=== PATIENT | male | born 1945 | race Caucasian/White ===

== ENCOUNTER 2021-10-10 08:34 | Observation (INO) ==
[2021-10-10 09:02] LABS: INR 1.1; Prothrombin Time 12.4 Seconds (9.4-12.1)
[2021-10-10] MEDS ORDERED: 0.9 % Sodium Chloride 500 ML ONE (09:13)
[2021-10-10] MEDS ORDERED: *HR* Midazolam HCl 2 MG/2 ML VIAL IVP ONE (09:21)
[2021-10-10] MEDS ORDERED: *HR* FentaNYL (PF) 100 MCG/2 ML VIAL IVP ONE (09:21)
[2021-10-10 09:38] LABS: Basophils # 0.1 K/mcL (0.0-0.2); Basophils % 0.9 %; Eosinophils # 0.3 K/mcL (0.0-0.6); Eosinophils % 3.4 %; Hematocrit 40.1 % (37.5-50.1); Hemoglobin 13.3 g/dL (12.9-16.9); Immature Granulocytes % 1.6 % (0-4); Lymphocytes # 2.3 K/mcL (0.6-4.6); Lymphocytes % 27.8 %; Mean Corpuscular HGB Conc 33.2 g/dL (31.6-35.5); Mean Corpuscular Hemoglobin 30.8 pg (28.0-33.3); Mean Corpuscular Volume 92.8 fL (83.0-100.0); Mean Platelet Volume 9.5 fL (9.4-12.4); Monocytes # 0.7 K/mcL (0.0-1.3); Monocytes % 8.3 %; Neutrophils # 4.8 K/mcL (1.6-8.9); Platelet Count 296 K/mcL (140-400); Red Blood Count 4.32 M/mcL (4.19-5.50); Red Cell Distribution Width 13.7 % (11.5-14.5); White Blood Count 8.2 K/mcL (4.3-11.1)
[2021-10-10] MEDS ORDERED: Naloxone 0.4 MG/ML INJ IVP PRN ×2 (13:15→13:19)
[2021-10-10] MEDS: predniSONE 20 MG TABLET PO SCH (15:25)
[2021-10-10] MEDS: Ipratropium/Albuterol Neb 3 ML IH SCH ×3 (15:52→23:21)
[2021-10-11] MEDS: Ipratropium/Albuterol Neb 3 ML IH SCH ×5 (04:15→20:09)
[2021-10-11 05:43] LABS: Basophils % 0.1 %; Eosinophils % 0.1 %; Hematocrit 32.8 % (37.5-50.1); Immature Granulocytes % 0.9 % (0-4); Lymphocytes # 1.2 K/mcL (0.6-4.6); Lymphocytes % 13.5 %; Mean Corpuscular HGB Conc 34.1 g/dL (31.6-35.5); Mean Corpuscular Hemoglobin 30.6 pg (28.0-33.3); Mean Corpuscular Volume 89.6 fL (83.0-100.0); Mean Platelet Volume 9.4 fL (9.4-12.4); Monocytes # 0.5 K/mcL (0.0-1.3); Monocytes % 5.9 %; Neutrophils # 7.2 K/mcL (1.6-8.9); Platelet Count 245 K/mcL (140-400); Red Blood Count 3.66 M/mcL (4.19-5.50); Red Cell Distribution Width 13.6 % (11.5-14.5); Segmented Neutrophils % 79.5 %; White Blood Count 9.1 K/mcL (4.3-11.1)
[2021-10-11 05:45] LABS: Hemoglobin 11.2 g/dL (12.9-16.9)
[2021-10-11 06:00] LABS: BUN/Creatinine Ratio 15 (6-26); Blood Urea Nitrogen 13 mg/dL (8-23); Calcium 8.5 mg/dL (8.6-10.3); Carbon Dioxide 24 mEq/L (23-29); Chloride 99 mEq/L (98-107); Glucose 141 mg/dL (70-105); Osmolality,Calculated 272 (280-300); Potassium 4.1 mEq/L (3.5-5.1); Sodium 130 mEq/L (136-145); eGFR For African Americans > 60 (> 60); eGFR For Non-African Americans > 60 (> 60)
[2021-10-11] MEDS: predniSONE 20 MG TABLET PO SCH (09:21)
[2021-10-11] MEDS: MOM Conc 10 ML UD.LIQ PO PRN ×2 (17:33→19:10)
[2021-10-11] MEDS: Mag Hydrox/Al Hydrox/Simeth 30 ML UDC PO PRN ×3 (17:33→19:08)
[2021-10-11] MEDS: Ondansetron ODT 4 MG TAB.RAPDIS SL PRN (17:38)
[2021-10-11] MEDS ORDERED: Perphenazine 2 MG TABLET PO SCH (21:00)
[2021-10-12] MEDS: Ipratropium/Albuterol Neb 3 ML IH SCH ×4 (00:33→15:23)
[2021-10-12 04:26] VITALS: TEMP 97.8; O2SAT 94
[2021-10-12] MEDS: Ondansetron ODT 4 MG TAB.RAPDIS SL PRN (05:41)
[2021-10-12] MEDS: Mag Hydrox/Al Hydrox/Simeth 30 ML UDC PO PRN (05:42)
[2021-10-12 07:02] LABS: Basophils % 0.3 %; Eosinophils % 0.3 %; Immature Granulocytes % 1.1 % (0-4); Lymphocytes # 2.8 K/mcL (0.6-4.6); Mean Corpuscular HGB Conc 33.3 g/dL (31.6-35.5); Mean Corpuscular Hemoglobin 30.2 pg (28.0-33.3); Mean Corpuscular Volume 90.5 fL (83.0-100.0); Mean Platelet Volume 9.3 fL (9.4-12.4); Monocytes % 8.5 %; Neutrophils # 7.6 K/mcL (1.6-8.9); Platelet Count 289 K/mcL (140-400); Red Blood Count 3.98 M/mcL (4.19-5.50); Red Cell Distribution Width 13.9 % (11.5-14.5); Segmented Neutrophils % 65.8 %; White Blood Count 11.5 K/mcL (4.3-11.1)
[2021-10-12 07:46] LABS: BUN/Creatinine Ratio 15 (6-26); Blood Urea Nitrogen 13 mg/dL (8-23); Calcium 8.9 mg/dL (8.6-10.3); Carbon Dioxide 26 mEq/L (23-29); Chloride 99 mEq/L (98-107); Glucose 91 mg/dL (70-105); Osmolality,Calculated 272 (280-300); Potassium 4.2 mEq/L (3.5-5.1); Sodium 131 mEq/L (136-145); eGFR For African Americans > 60 (> 60); eGFR For Non-African Americans > 60 (> 60)
[2021-10-12 08:00] VITALS: BP 109/66; PULSE 63
[2021-10-12 08:33] LABS: Thyroid Stimulating Hormone 3.604 mcIU/mL (0.340-5.600)
[2021-10-12] MEDS: predniSONE 20 MG TABLET PO SCH (09:34)
[2021-10-12 10:18] LABS: Magnesium 2.4 mg/dL (1.6-2.6)
== END 2021-10-12 16:15 | disposition home or self-care (01) ==
LOC: 3NENU 08:34 → LAB 08:34 → SUATTDRO 11:34
PROVIDERS: ADMIT Hospitalist; ATTEND Internal Medicine

== ENCOUNTER 2021-11-24 09:25 | Inpatient (IN) ==
[~2021-11-24 09:25] MED LIST: Acetaminophen IV 1,000 MG/100 ML BAG IVPB ONE; Albuterol 2.5 MG/3 ML NEBULIZER IH ONE
[2021-11-24] MEDS ORDERED: Clindamycin 900 MG/50 ML 900 MG/50 ML IV.SOLN IVPB ONE (09:46)
[2021-11-24] MEDS ORDERED: Ringers Solution, Lactated 1,000 ML IVC SCH (10:00)
[2021-11-24] MEDS ORDERED: Ondansetron 4 MG/2 ML VIAL IVP PRN ×2 (10:36→16:11)
[2021-11-24] MEDS ORDERED: *HR* FentaNYL (PF) 100 MCG/2 ML VIAL IVP PRN (10:36)
[2021-11-24] MEDS ORDERED: Albuterol 2.5 MG/3 ML NEBULIZER IH PRN (10:36)
[2021-11-24] MEDS ORDERED: *HR* Rocuronium Bromide 50 MG/5 ML VIAL ONE ×2 (10:37→12:49)
[2021-11-24] MEDS ORDERED: Lidocaine -MPF 2% 2 ML VIAL ONE (10:37)
[2021-11-24] MEDS ORDERED: *HR* Succinylcholine 200 MG/10 ML VIAL IVP ONE (10:37)
[2021-11-24] MEDS ORDERED: Ondansetron 4 MG/2 ML VIAL ONE (10:37)
[2021-11-24] MEDS ORDERED: *HR* FentaNYL (PF) 100 MCG/2 ML VIAL ONE (10:38)
[2021-11-24] MEDS ORDERED: *HR* Propofol 200 MG/20 ML VIAL IVP ONE (10:38)
[2021-11-24] MEDS ORDERED: Ketorolac 30 MG/ML VIAL ONE (13:53)
[2021-11-24] MEDS ORDERED: Naloxone 0.4 MG/ML INJ IVP PRN (16:11)
[2021-11-24] MEDS ORDERED: Gabapentin 300 MG CAPSULE PO SCH (16:11)
[2021-11-24] MEDS: *HR* HYDROcodone/Acet 5/325 mg TABLET PO PRN (16:19)
[2021-11-24] MEDS: 0.9 % Sodium Chloride 1,000 ML IVC SCH (17:14)
[2021-11-24] MEDS: *HR* Heparin 5,000 UNIT/ML VIAL SQ SCH (17:14)
[2021-11-24] MEDS: Ketorolac 30 MG/ML VIAL IVP SCH (18:31)
[2021-11-24] MEDS ORDERED: Amiodarone Premix 360 MG/200 ML BAG IVC ONE (18:58)
[2021-11-24] MEDS ORDERED: Amiodarone Premix 150 MG/100 ML BAG IVPB ONE (18:58)
[2021-11-24] MEDS: Ipratropium/Albuterol Neb 3 ML IH SCH ×3 (20:09→23:52)
[2021-11-24] MEDS: Sennosides/Docusate Sodium TABLET PO SCH (20:20)
[2021-11-24] MEDS: Perphenazine 2 MG TABLET PO SCH (20:21)
[2021-11-24] MEDS: Famotidine 20 MG TABLET PO SCH (20:21)
[2021-11-25] MEDS: Ketorolac 30 MG/ML VIAL IVP SCH ×5 (00:08→23:40)
[2021-11-25] MEDS: *HR* Heparin 5,000 UNIT/ML VIAL SQ SCH ×4 (00:08→21:09)
[2021-11-25] MEDS: Gabapentin 300 MG CAPSULE PO SCH ×4 (00:09→21:09)
[2021-11-25] MEDS ORDERED: Amiodarone Premix 360 MG/200 ML BAG IVC SCH (00:59)
[2021-11-25] MEDS: Ipratropium/Albuterol Neb 3 ML IH SCH ×6 (03:40→23:41)
[2021-11-25 03:50] LABS: Hematocrit 34.9 % (37.5-50.1); Hemoglobin 12.2 g/dL (12.9-16.9); Mean Corpuscular Volume 88.8 fL (83.0-100.0); Mean Platelet Volume 8.7 fL (9.4-12.4); Platelet Count 304 K/mcL (140-400); Red Blood Count 3.93 M/mcL (4.19-5.50); White Blood Count 9.9 K/mcL (4.3-11.1)
[2021-11-25 04:09] LABS: BUN/Creatinine Ratio 22 (6-26); Blood Urea Nitrogen 19 mg/dL (8-23); Calcium 8.7 mg/dL (8.6-10.3); Carbon Dioxide 21 mEq/L (23-29); Chloride 95 mEq/L (98-107); Glucose 176 mg/dL (70-105); Magnesium 1.9 mg/dL (1.6-2.6); Osmolality,Calculated 267 (280-300); Sodium 125 mEq/L (136-145); eGFR For African Americans > 60 (> 60); eGFR For Non-African Americans > 60 (> 60)
[2021-11-25] MEDS: 0.9 % Sodium Chloride 1,000 ML IVC SCH (06:05)
[2021-11-25] MEDS: Sennosides/Docusate Sodium TABLET PO SCH ×2 (07:29→21:09)
[2021-11-25] MEDS: Famotidine 20 MG TABLET PO SCH ×2 (07:29→21:09)
[2021-11-25] MEDS: Tiotropium 10 INH DOSE IH SCH (07:30)
[2021-11-25] MEDS: Aspirin Enteric Coated 81 MG Tablet PO SCH (07:30)
[2021-11-25] MEDS ORDERED: NON-FORMULARY MEDICATION 1 EACH EACH (Alendronate Sodium [Fosamax] 35 MG Tablet) PO SCH (13:56)
[2021-11-25] MEDS: Perphenazine 2 MG TABLET PO SCH (21:09)
[2021-11-26] MEDS: Ipratropium/Albuterol Neb 3 ML IH SCH ×6 (03:43→23:33)
[2021-11-26] MEDS: Ketorolac 30 MG/ML VIAL IVP SCH ×4 (05:41→23:59)
[2021-11-26] MEDS: *HR* Heparin 5,000 UNIT/ML VIAL SQ SCH ×3 (05:41→21:40)
[2021-11-26] MEDS: Aspirin Enteric Coated 81 MG Tablet PO SCH (08:12)
[2021-11-26] MEDS: Sennosides/Docusate Sodium TABLET PO SCH ×2 (08:12→21:43)
[2021-11-26] MEDS: Famotidine 20 MG TABLET PO SCH ×2 (08:12→21:40)
[2021-11-26] MEDS: Gabapentin 300 MG CAPSULE PO SCH ×3 (08:12→21:40)
[2021-11-26] MEDS ORDERED: *HR* Amiodarone 200 MG TABLET PO SCH (09:00)
[2021-11-26] MEDS: Tiotropium 10 INH DOSE IH SCH (11:24)
[2021-11-26] MEDS ORDERED: 0.9 % Sodium Chloride 500 ML IVC ONE (13:09)
[2021-11-26] MEDS ORDERED: 0.9 % Sodium Chloride 1,000 ML ONE (13:10)
[2021-11-26] MEDS ORDERED: Albumin Human 5% 12.5 GM/250 ML IV.SOLN ONE (13:10)
[2021-11-26] MEDS ORDERED: Albumin Human 5% 12.5 GM/250 ML IV.SOLN IVPB ONE (13:11)
[2021-11-26] MEDS ORDERED: 0.9 % Sodium Chloride 500 ML IVC SCH (13:15)
[2021-11-26] MEDS ORDERED: 0.9 % Sodium Chloride 1,000 ML IVC SCH (14:56)
[2021-11-26] MEDS ORDERED: Bisacodyl 10 MG RECTAL SUPPOSITORY RC PRN (14:59)
[2021-11-26 16:54] LABS: Hematocrit 29.3 % (37.5-50.1); Mean Corpuscular HGB Conc 34.8 g/dL (31.6-35.5); Mean Corpuscular Hemoglobin 30.5 pg (28.0-33.3); Mean Corpuscular Volume 87.7 fL (83.0-100.0); Mean Platelet Volume 8.9 fL (9.4-12.4); Platelet Count 291 K/mcL (140-400); Red Blood Count 3.34 M/mcL (4.19-5.50); Red Cell Distribution Width 13.2 % (11.5-14.5); White Blood Count 11.4 K/mcL (4.3-11.1)
[2021-11-26 16:56] LABS: Hemoglobin 10.2 g/dL (12.9-16.9)
[2021-11-26] MEDS: Perphenazine 2 MG TABLET PO SCH (21:40)
[2021-11-26] MEDS: 0.9 % Sodium Chloride 1,000 ML IVC SCH (21:47)
[2021-11-27] MEDS: Ketorolac 30 MG/ML VIAL IVP SCH ×5 (00:03→23:32)
[2021-11-27] MEDS: Ipratropium/Albuterol Neb 3 ML IH SCH ×6 (03:51→23:05)
[2021-11-27] MEDS: *HR* Heparin 5,000 UNIT/ML VIAL SQ SCH ×3 (06:16→23:04)
[2021-11-27] MEDS: Tiotropium 10 INH DOSE IH SCH (07:14)
[2021-11-27] MEDS: Sennosides/Docusate Sodium TABLET PO SCH ×2 (07:34→19:41)
[2021-11-27] MEDS: Aspirin Enteric Coated 81 MG Tablet PO SCH (07:50)
[2021-11-27] MEDS: Gabapentin 300 MG CAPSULE PO SCH ×3 (07:50→20:05)
[2021-11-27] MEDS: Famotidine 20 MG TABLET PO SCH ×2 (07:50→20:05)
[2021-11-27] MEDS: 0.9 % Sodium Chloride 1,000 ML IVC SCH ×3 (07:50→22:33)
[2021-11-27 12:23] LABS: Basophils % 0.2 %; Eosinophils # 0.1 K/mcL (0.0-0.6); Eosinophils % 0.9 %; Hematocrit 30.8 % (37.5-50.1); Hemoglobin 10.6 g/dL (12.9-16.9); Immature Granulocytes % 0.7 % (0-4); Lymphocytes % 6.6 %; Mean Corpuscular HGB Conc 34.4 g/dL (31.6-35.5); Mean Corpuscular Hemoglobin 30.6 pg (28.0-33.3); Mean Platelet Volume 8.8 fL (9.4-12.4); Monocytes # 1.3 K/mcL (0.0-1.3); Monocytes % 8.7 %; Neutrophils # 12.5 K/mcL (1.6-8.9); Platelet Count 294 K/mcL (140-400); Red Blood Count 3.46 M/mcL (4.19-5.50); Red Cell Distribution Width 13.3 % (11.5-14.5); Segmented Neutrophils % 82.9 %
[2021-11-27 12:42] LABS: BUN/Creatinine Ratio 24 (6-26); Blood Urea Nitrogen 18 mg/dL (8-23); Calcium 8.1 mg/dL (8.6-10.3); Carbon Dioxide 24 mEq/L (23-29); Chloride 98 mEq/L (98-107); Glucose 95 mg/dL (70-105); Magnesium 1.9 mg/dL (1.6-2.6); Osmolality,Calculated 266 (280-300); Potassium 4.4 mEq/L (3.5-5.1); Sodium 127 mEq/L (136-145); eGFR For African Americans > 60 (> 60); eGFR For Non-African Americans > 60 (> 60)
[2021-11-27 14:37] LABS: Bilirubin,Urine Negative (Negative); Blood,Urine Moderate (Negative); Clarity,Urine Clear (Clear); Color,Urine Yellow (Yellow); Glucose,Urine (UA) Normal (Normal); Ketones,Urine Negative (Negative); Leukocyte Esterase,Urine Negative (Negative); Mucus,Urine Few per lpf (None-Few); Nitrite,Urine Negative (Negative); Protein,Urine Trace mg/dL (Neg-Trace); RBC,Urine 15-30 per hpf (0-3); Specific Gravity,Urine 1.019 (1.010-1.025); Urobilinogen,Urine Normal (Normal)
[2021-11-27] MEDS: levoFLOXacin 500 MG/100 ML 500 MG/100 ML BAG IVPB SCH (16:27)
[2021-11-27] MEDS: Perphenazine 2 MG TABLET PO SCH (20:05)
[2021-11-28] MEDS: Ipratropium/Albuterol Neb 3 ML IH SCH ×6 (03:24→23:44)
[2021-11-28 05:37] LABS: Basophils % 0.3 %; Eosinophils # 0.4 K/mcL (0.0-0.6); Hematocrit 28.6 % (37.5-50.1); Hemoglobin 9.8 g/dL (12.9-16.9); Immature Granulocytes % 0.5 % (0-4); Lymphocytes # 1.9 K/mcL (0.6-4.6); Lymphocytes % 13.7 %; Mean Corpuscular HGB Conc 34.3 g/dL (31.6-35.5); Mean Corpuscular Volume 90.5 fL (83.0-100.0); Mean Platelet Volume 9.4 fL (9.4-12.4); Monocytes # 1.1 K/mcL (0.0-1.3); Monocytes % 8.4 %; Platelet Count 285 K/mcL (140-400); Red Blood Count 3.16 M/mcL (4.19-5.50); Red Cell Distribution Width 13.6 % (11.5-14.5); Segmented Neutrophils % 74.1 %; White Blood Count 13.5 K/mcL (4.3-11.1)
[2021-11-28 05:57] LABS: BUN/Creatinine Ratio 27 (6-26); Blood Urea Nitrogen 21 mg/dL (8-23); Calcium 8.4 mg/dL (8.6-10.3); Carbon Dioxide 24 mEq/L (23-29); Chloride 98 mEq/L (98-107); Glucose 97 mg/dL (70-105); Magnesium 1.9 mg/dL (1.6-2.6); Osmolality,Calculated 267 (280-300); Potassium 4.3 mEq/L (3.5-5.1); Sodium 127 mEq/L (136-145); eGFR For African Americans > 60 (> 60); eGFR For Non-African Americans > 60 (> 60)
[2021-11-28] MEDS: Ketorolac 30 MG/ML VIAL IVP SCH ×3 (06:24→17:08)
[2021-11-28] MEDS: *HR* Heparin 5,000 UNIT/ML VIAL SQ SCH ×3 (06:24→20:08)
[2021-11-28] MEDS: Tiotropium 10 INH DOSE IH SCH (07:24)
[2021-11-28] MEDS: Gabapentin 300 MG CAPSULE PO SCH (07:43)
[2021-11-28] MEDS: Sennosides/Docusate Sodium TABLET PO SCH ×2 (07:43→20:07)
[2021-11-28] MEDS: Aspirin Enteric Coated 81 MG Tablet PO SCH (07:43)
[2021-11-28] MEDS: Famotidine 20 MG TABLET PO SCH ×2 (07:43→20:07)
[2021-11-28] MEDS: *HR* HYDROcodone/Acet 5/325 mg TABLET PO PRN ×2 (07:47→17:07)
[2021-11-28] MEDS: levoFLOXacin 500 MG/100 ML 500 MG/100 ML BAG IVPB SCH (15:36)
[2021-11-28] MEDS: Perphenazine 2 MG TABLET PO SCH (20:07)
[2021-11-29] MEDS: Ketorolac 30 MG/ML VIAL IVP SCH ×3 (00:08→14:59)
[2021-11-29] MEDS: Ipratropium/Albuterol Neb 3 ML IH SCH ×4 (04:24→15:26)
[2021-11-29] MEDS: *HR* Heparin 5,000 UNIT/ML VIAL SQ SCH (05:13)
[2021-11-29 05:21] VITALS: PULSE 67; TEMP 97.9
[2021-11-29 07:02] VITALS: BP 108/62
[2021-11-29] MEDS: Tiotropium 10 INH DOSE IH SCH (07:29)
[2021-11-29] MEDS: Aspirin Enteric Coated 81 MG Tablet PO SCH (09:50)
[2021-11-29] MEDS: Famotidine 20 MG TABLET PO SCH (09:51)
[2021-11-29] MEDS: Sennosides/Docusate Sodium TABLET PO SCH (09:52)
[2021-11-29] MEDS: *HR* HYDROcodone/Acet 5/325 mg TABLET PO PRN (09:56)
[2021-11-29 16:13] VITALS: O2SAT 97
== END 2021-11-29 16:28 | disposition home health service (06) | DRG 629 ==
LOC: SAMDAY 09:25 → 2NNU 16:08
PROVIDERS: ADMIT Thoracic Surgery (Cardiothoracic Vascular Surgery); ATTEND Thoracic Surgery (Cardiothoracic Vascular Surgery)

== ENCOUNTER 2021-11-29 20:11 | Inpatient (IN) ==
[2021-11-29 21:18] LABS: Basophils % 0.3 %; Eosinophils # 0.1 K/mcL (0.0-0.6); Eosinophils % 0.8 %; Hematocrit 29.1 % (37.5-50.1); Hemoglobin 10.1 g/dL (12.9-16.9); Immature Granulocytes % 1.1 % (0-4); Lymphocytes # 0.9 K/mcL (0.6-4.6); Lymphocytes % 5.9 %; Mean Corpuscular HGB Conc 34.7 g/dL (31.6-35.5); Mean Corpuscular Hemoglobin 30.9 pg (28.0-33.3); Mean Platelet Volume 9.6 fL (9.4-12.4); Monocytes # 0.9 K/mcL (0.0-1.3); Neutrophils # 12.9 K/mcL (1.6-8.9); Platelet Count 328 K/mcL (140-400); Red Blood Count 3.27 M/mcL (4.19-5.50); Red Cell Distribution Width 13.6 % (11.5-14.5); Segmented Neutrophils % 85.9 %; White Blood Count 15.1 K/mcL (4.3-11.1)
[2021-11-29 21:37] LABS: BUN/Creatinine Ratio 21 (6-26); Blood Urea Nitrogen 15 mg/dL (8-23); Calcium 8.6 mg/dL (8.6-10.3); Carbon Dioxide 20 mEq/L (23-29); Chloride 92 mEq/L (98-107); Glucose 125 mg/dL (70-105); Osmolality,Calculated 254 (280-300); Potassium 4.6 mEq/L (3.5-5.1); Sodium 121 mEq/L (136-145); eGFR For African Americans > 60 (> 60); eGFR For Non-African Americans > 60 (> 60)
[2021-11-29 21:42] LABS: Troponin I 0.04 ng/mL (< 0.04)
[2021-11-29 22:21] LABS: Sodium, Urine 107.9 mEq/L
[2021-11-29] MEDS ORDERED: Vancomycin 1,500 MG/265 ML IV.SOLN IVPB ONE (22:45)
[2021-11-29] MEDS ORDERED: Cefepime HCl 2,000 MG in 0.9 % Sodium Chloride 10 ML IVP ONE (22:45)
[2021-11-29 22:50] LABS: Influenza A PCR Negative (Negative); Influenza B PCR Negative (Negative); Resp. Syncytial Virus PCR Negative (Negative)
[2021-11-29 22:55] LABS: SARS-CoV-2 by PCR (In House) Negative (Negative)
[2021-11-29] MEDS ORDERED: Naloxone 0.4 MG/ML INJ IVP PRN (23:46)
[2021-11-30] MEDS ORDERED: Benzonatate 100 MG CAPSULE PO PRN (01:05)
[2021-11-30] MEDS ORDERED: Isovue-370 500 ML BOTTLE IVP ONE (01:09)
[2021-11-30] MEDS ORDERED: Chlorhexidine Rinse 15 ML MOUTHWASH MM SCH (01:15)
[2021-11-30] MEDS ORDERED: methylPREDNISolone 125 MG/2 ML VIAL IVP ONE (02:35)
[2021-11-30] MEDS ORDERED: Furosemide 20 MG/2 ML VIAL IVP ONE (02:36)
[2021-11-30] MEDS: GuaiFENesin/Dextromethorphan TABLET PO SCH ×2 (02:48→08:49)
[2021-11-30] MEDS ORDERED: Perflutren Lipid Microsphere 1.3 ML in 0.9 % Sodium Chloride 8.7 ML IVP PRN (03:11)
[2021-11-30 03:24] LABS: Basophils % 0.3 %; Eosinophils # 0.2 K/mcL (0.0-0.6); Eosinophils % 1.1 %; Hematocrit 27.5 % (37.5-50.1); Hemoglobin 9.6 g/dL (12.9-16.9); Immature Granulocytes % 1.3 % (0-4); Lymphocytes # 1.1 K/mcL (0.6-4.6); Lymphocytes % 7.7 %; Mean Corpuscular HGB Conc 34.9 g/dL (31.6-35.5); Mean Corpuscular Hemoglobin 30.8 pg (28.0-33.3); Mean Corpuscular Volume 88.1 fL (83.0-100.0); Mean Platelet Volume 9.1 fL (9.4-12.4); Neutrophils # 11.2 K/mcL (1.6-8.9); Platelet Count 311 K/mcL (140-400); Red Blood Count 3.12 M/mcL (4.19-5.50); Red Cell Distribution Width 13.3 % (11.5-14.5); Segmented Neutrophils % 82.6 %; White Blood Count 13.6 K/mcL (4.3-11.1)
[2021-11-30] MEDS: Budesonide/Formoterol 160/4.5 1 PUFF INH IH SCH ×3 (03:27→20:12)
[2021-11-30] MEDS: Ipratropium/Albuterol Neb 3 ML IH SCH ×6 (03:27→23:49)
[2021-11-30 03:36] LABS: ABG Base Excess -3 mEq/L (-2 to 3); ABG HCO3 20 mEq/L (21-27); ABG Oxygen Saturation 98 % (95-98); ABG PCO2 26 mmHg (35-45); ABG PH 7.48 pH Units (7.32-7.45); ABG PO2 101 mmHg (85-104); ABG TCO2 20 mEq/L (20-26)
[2021-11-30 04:01] LABS: BUN/Creatinine Ratio 19 (6-26); Blood Urea Nitrogen 13 mg/dL (8-23); Calcium 8.4 mg/dL (8.6-10.3); Carbon Dioxide 21 mEq/L (23-29); Chloride 93 mEq/L (98-107); Glucose 114 mg/dL (70-105); Osmolality,Calculated 257 (280-300); Potassium 4.4 mEq/L (3.5-5.1); Sodium 123 mEq/L (136-145); eGFR For African Americans > 60 (> 60); eGFR For Non-African Americans > 60 (> 60)
[2021-11-30 04:02] LABS: Thyroid Stimulating Hormone 2.261 mcIU/mL (0.340-5.600)
[2021-11-30] MEDS: *HR* Enoxaparin 40 MG/0.4 ML SYRINGE SQ SCH (05:05)
[2021-11-30 07:29] LABS: BUN/Creatinine Ratio 17 (6-26); Blood Urea Nitrogen 11 mg/dL (8-23); Calcium 8.7 mg/dL (8.6-10.3); Carbon Dioxide 22 mEq/L (23-29); Chloride 95 mEq/L (98-107); Glucose 139 mg/dL (70-105); Osmolality,Calculated 262 (280-300); Potassium 4.5 mEq/L (3.5-5.1); Sodium 125 mEq/L (136-145); eGFR For African Americans > 60 (> 60); eGFR For Non-African Americans > 60 (> 60)
[2021-11-30] MEDS: Cefepime HCl 2,000 MG in 0.9 % Sodium Chloride 10 ML IVP SCH ×3 (08:48→23:13)
[2021-11-30] MEDS: MethylPREDNISolone 40 MG/ML VIAL IVP SCH ×3 (08:48→23:13)
[2021-11-30] MEDS: Aspirin Enteric Coated 81 MG Tablet PO SCH (08:49)
[2021-11-30] MEDS: Lactobacillus 1 EACH CAP.SPRINK PO SCH ×2 (08:49→19:54)
[2021-11-30] MEDS: Metoprolol XL (24 HR) Succ 25 MG TAB.ER.24H PO SCH (08:49)
[2021-11-30 11:00] LABS: BUN/Creatinine Ratio 17 (6-26); Blood Urea Nitrogen 11 mg/dL (8-23); Calcium 8.4 mg/dL (8.6-10.3); Carbon Dioxide 18 mEq/L (23-29); Chloride 94 mEq/L (98-107); Glucose 180 mg/dL (70-105); Osmolality,Calculated 260 (280-300); Potassium 4.3 mEq/L (3.5-5.1); Sodium 123 mEq/L (136-145); Troponin I 0.03 ng/mL (< 0.04); eGFR For African Americans > 60 (> 60); eGFR For Non-African Americans > 60 (> 60)
[2021-11-30] MEDS ORDERED: Vancomycin 1,250 MG/262.5 ML IV.SOLN IVPB SCH ×2 (11:00→12:00)
[2021-11-30] MEDS ORDERED: Cefepime HCl 2,000 MG in 0.9 % Sodium Chloride 10 ML IVP SCH (12:00)
[2021-11-30 16:48] LABS: Blood Urea Nitrogen 13 mg/dL (8-23); Calcium 8.6 mg/dL (8.6-10.3); Carbon Dioxide 20 mEq/L (23-29); Chloride 95 mEq/L (98-107); Glucose 151 mg/dL (70-105); Osmolality,Calculated 261 (280-300); Potassium 4.7 mEq/L (3.5-5.1); Sodium 124 mEq/L (136-145)
[2021-11-30] MEDS: MetroNIDAZOLE 500 MG/100 ML 500 MG/100 ML BAG IVPB SCH ×2 (16:48→23:12)
[2021-11-30 17:00] LABS: BUN/Creatinine Ratio 21 (6-26); eGFR For African Americans > 60 (> 60); eGFR For Non-African Americans > 60 (> 60)
[2021-11-30] MEDS: Perphenazine 2 MG TABLET PO SCH (19:54)
[2021-11-30] MEDS ORDERED: NON-FORMULARY MEDICATION 1 EACH EACH (Fluticasone/Salmeterol [Advair 500-50 Diskus] 1 EACH IH SCH (21:00)
[2021-12-01 03:48] LABS: Basophils % 0.2 %; Eosinophils % 0.1 %; Hematocrit 25.9 % (37.5-50.1); Hemoglobin 9.2 g/dL (12.9-16.9); Immature Granulocytes % 1.6 % (0-4); Lymphocytes # 0.7 K/mcL (0.6-4.6); Lymphocytes % 3.8 %; Mean Corpuscular HGB Conc 35.5 g/dL (31.6-35.5); Mean Corpuscular Hemoglobin 30.8 pg (28.0-33.3); Mean Corpuscular Volume 86.6 fL (83.0-100.0); Mean Platelet Volume 9.4 fL (9.4-12.4); Monocytes # 0.8 K/mcL (0.0-1.3); Monocytes % 4.7 %; Neutrophils # 16.1 K/mcL (1.6-8.9); Platelet Count 339 K/mcL (140-400); Red Blood Count 2.99 M/mcL (4.19-5.50); Red Cell Distribution Width 13.3 % (11.5-14.5); Segmented Neutrophils % 89.6 %
[2021-12-01 04:00] LABS: BUN/Creatinine Ratio 22 (6-26); Blood Urea Nitrogen 14 mg/dL (8-23); Calcium 8.2 mg/dL (8.6-10.3); Carbon Dioxide 20 mEq/L (23-29); Chloride 94 mEq/L (98-107); Glucose 144 mg/dL (70-105); Osmolality,Calculated 261 (280-300); Sodium 124 mEq/L (136-145); eGFR For African Americans > 60 (> 60); eGFR For Non-African Americans > 60 (> 60)
[2021-12-01] MEDS: Ipratropium/Albuterol Neb 3 ML IH SCH ×5 (04:14→20:21)
[2021-12-01] MEDS: *HR* Enoxaparin 40 MG/0.4 ML SYRINGE SQ SCH (05:12)
[2021-12-01] MEDS: MetroNIDAZOLE 500 MG/100 ML 500 MG/100 ML BAG IVPB SCH ×2 (07:22→17:03)
[2021-12-01] MEDS: Metoprolol XL (24 HR) Succ 25 MG TAB.ER.24H PO SCH (07:23)
[2021-12-01] MEDS: Cefepime HCl 2,000 MG in 0.9 % Sodium Chloride 10 ML IVP SCH ×2 (07:23→17:00)
[2021-12-01] MEDS: Lactobacillus 1 EACH CAP.SPRINK PO SCH ×2 (07:24→20:05)
[2021-12-01] MEDS: Aspirin Enteric Coated 81 MG Tablet PO SCH (07:24)
[2021-12-01] MEDS: MethylPREDNISolone 40 MG/ML VIAL IVP SCH (07:24)
[2021-12-01] MEDS: Tiotropium 10 INH DOSE IH SCH (07:30)
[2021-12-01] MEDS: Budesonide/Formoterol 160/4.5 1 PUFF INH IH SCH ×2 (07:31→20:21)
[2021-12-01 09:47] LABS: BUN/Creatinine Ratio 20 (6-26); Blood Urea Nitrogen 14 mg/dL (8-23); Calcium 8.3 mg/dL (8.6-10.3); Carbon Dioxide 19 mEq/L (23-29); Chloride 94 mEq/L (98-107); Glucose 158 mg/dL (70-105); Osmolality,Calculated 264 (280-300); Potassium 3.8 mEq/L (3.5-5.1); Sodium 125 mEq/L (136-145); eGFR For African Americans > 60 (> 60); eGFR For Non-African Americans > 60 (> 60)
[2021-12-01] MEDS ORDERED: Furosemide 20 MG/2 ML VIAL IVP ONE (09:53)
[2021-12-01] MEDS: GuaiFENesin Liq 200 MG/10 ML UDC PO SCH (11:16)
[2021-12-01] MEDS: Sennosides/Docusate Sodium TABLET PO SCH (11:16)
[2021-12-01] MEDS: Cyanocobalamin (B-12) 1,000 MCG TABLET PO SCH (11:16)
[2021-12-01] MEDS: Perphenazine 2 MG TABLET PO SCH (20:05)
[2021-12-02] MEDS: Ipratropium/Albuterol Neb 3 ML IH SCH ×4 (00:01→11:30)
[2021-12-02] MEDS: MetroNIDAZOLE 500 MG/100 ML 500 MG/100 ML BAG IVPB SCH ×4 (00:15→23:28)
[2021-12-02] MEDS: Cefepime HCl 2,000 MG in 0.9 % Sodium Chloride 10 ML IVP SCH ×4 (00:15→23:28)
[2021-12-02] MEDS: *HR* Enoxaparin 40 MG/0.4 ML SYRINGE SQ SCH (05:09)
[2021-12-02] MEDS: GuaiFENesin Liq 200 MG/10 ML UDC PO SCH (07:15)
[2021-12-02 07:16] LABS: Hematocrit 27.2 % (37.5-50.1); Hemoglobin 9.6 g/dL (12.9-16.9); Mean Corpuscular HGB Conc 35.3 g/dL (31.6-35.5); Mean Corpuscular Hemoglobin 30.5 pg (28.0-33.3); Mean Corpuscular Volume 86.3 fL (83.0-100.0); Mean Platelet Volume 9.4 fL (9.4-12.4); Platelet Count 363 K/mcL (140-400); Red Blood Count 3.15 M/mcL (4.19-5.50); Red Cell Distribution Width 13.2 % (11.5-14.5); White Blood Count 16.5 K/mcL (4.3-11.1)
[2021-12-02] MEDS: Lactobacillus 1 EACH CAP.SPRINK PO SCH ×2 (07:16→20:42)
[2021-12-02] MEDS: Metoprolol XL (24 HR) Succ 25 MG TAB.ER.24H PO SCH (07:16)
[2021-12-02] MEDS: Sennosides/Docusate Sodium TABLET PO SCH (07:16)
[2021-12-02] MEDS: Cyanocobalamin (B-12) 1,000 MCG TABLET PO SCH (07:16)
[2021-12-02] MEDS: Aspirin Enteric Coated 81 MG Tablet PO SCH (07:17)
[2021-12-02] MEDS: predniSONE 20 MG TABLET PO SCH (07:35)
[2021-12-02 07:37] LABS: BUN/Creatinine Ratio 22 (6-26); Blood Urea Nitrogen 15 mg/dL (8-23); Calcium 8.4 mg/dL (8.6-10.3); Carbon Dioxide 23 mEq/L (23-29); Chloride 95 mEq/L (98-107); Glucose 109 mg/dL (70-105); Osmolality,Calculated 265 (280-300); Potassium 3.7 mEq/L (3.5-5.1); Sodium 127 mEq/L (136-145); eGFR For African Americans > 60 (> 60); eGFR For Non-African Americans > 60 (> 60)
[2021-12-02] MEDS: Tiotropium 10 INH DOSE IH SCH (07:50)
[2021-12-02] MEDS: Budesonide/Formoterol 160/4.5 1 PUFF INH IH SCH ×2 (07:50→20:13)
[2021-12-02] MEDS: Perphenazine 2 MG TABLET PO SCH (20:42)
[2021-12-03 00:44] LABS: Hematocrit 22.6 % (37.5-50.1); Mean Corpuscular HGB Conc 34.1 g/dL (31.6-35.5); Mean Corpuscular Hemoglobin 30.6 pg (28.0-33.3); Mean Corpuscular Volume 89.7 fL (83.0-100.0); Mean Platelet Volume 9.4 fL (9.4-12.4); Platelet Count 231 K/mcL (140-400); Red Blood Count 2.52 M/mcL (4.19-5.50); Red Cell Distribution Width 13.7 % (11.5-14.5); White Blood Count 11.6 K/mcL (4.3-11.1)
[2021-12-03 00:45] LABS: Hemoglobin 7.7 g/dL (12.9-16.9)
[2021-12-03 03:51] LABS: ABG Base Excess -1 mEq/L (-2 to 3); ABG HCO3 22 mEq/L (21-27); ABG Oxygen Saturation 92 % (95-98); ABG PCO2 28 mmHg (35-45); ABG PH 7.49 pH Units (7.32-7.45); ABG PO2 58 mmHg (85-104); ABG TCO2 23 mEq/L (20-26)
[2021-12-03] MEDS ORDERED: *HR* LORazepam 2 MG/ML VIAL IVP ONE ×2 (03:54→23:24)
[2021-12-03 04:19] LABS: BUN/Creatinine Ratio 28 (6-26); Blood Urea Nitrogen 17 mg/dL (8-23); Calcium 7.7 mg/dL (8.6-10.3); Carbon Dioxide 19 mEq/L (23-29); Chloride 94 mEq/L (98-107); Glucose 79 mg/dL (70-105); Osmolality,Calculated 256 (280-300); Potassium 4.5 mEq/L (3.5-5.1); Sodium 123 mEq/L (136-145); eGFR For African Americans > 60 (> 60); eGFR For Non-African Americans > 60 (> 60)
[2021-12-03] MEDS ORDERED: HYDROcodone BIT/Homatropine LQ 5 MG/5 ML UDC PO ONE (05:03)
[2021-12-03] MEDS: *HR* Enoxaparin 40 MG/0.4 ML SYRINGE SQ SCH (05:17)
[2021-12-03] MEDS: Cyanocobalamin (B-12) 1,000 MCG TABLET PO SCH (07:40)
[2021-12-03] MEDS: Lactobacillus 1 EACH CAP.SPRINK PO SCH ×2 (07:40→21:13)
[2021-12-03] MEDS: Aspirin Enteric Coated 81 MG Tablet PO SCH (07:41)
[2021-12-03] MEDS: Metoprolol XL (24 HR) Succ 25 MG TAB.ER.24H PO SCH (07:41)
[2021-12-03] MEDS: GuaiFENesin Liq 200 MG/10 ML UDC PO SCH (07:42)
[2021-12-03] MEDS: Sennosides/Docusate Sodium TABLET PO SCH (07:42)
[2021-12-03] MEDS: predniSONE 20 MG TABLET PO SCH (07:42)
[2021-12-03] MEDS: Cefepime HCl 2,000 MG in 0.9 % Sodium Chloride 10 ML IVP SCH ×2 (07:43→15:21)
[2021-12-03] MEDS: MetroNIDAZOLE 500 MG/100 ML 500 MG/100 ML BAG IVPB SCH ×2 (07:44→15:21)
[2021-12-03] MEDS: *HR* HYDROcodone/Acet 5/325 mg TABLET PO PRN ×2 (07:47→21:13)
[2021-12-03] MEDS: Ipratropium/Albuterol Neb 3 ML IH PRN ×2 (07:50→18:37)
[2021-12-03] MEDS: Budesonide/Formoterol 160/4.5 1 PUFF INH IH SCH ×2 (07:50→20:20)
[2021-12-03] MEDS: Tiotropium 10 INH DOSE IH SCH (07:53)
[2021-12-03] MEDS: GuaiFENesin Liq 200 MG/10 ML UDC PO PRN (15:20)
[2021-12-03] MEDS: Perphenazine 2 MG TABLET PO SCH (21:13)
[2021-12-04] MEDS: MetroNIDAZOLE 500 MG/100 ML 500 MG/100 ML BAG IVPB SCH ×4 (00:22→23:14)
[2021-12-04] MEDS: Cefepime HCl 2,000 MG in 0.9 % Sodium Chloride 10 ML IVP SCH ×4 (00:23→23:13)
[2021-12-04] MEDS: GuaiFENesin Liq 200 MG/10 ML UDC PO PRN (00:29)
[2021-12-04 05:13] LABS: Hematocrit 30.3 % (37.5-50.1); Mean Corpuscular HGB Conc 34.3 g/dL (31.6-35.5); Mean Corpuscular Hemoglobin 30.8 pg (28.0-33.3); Mean Corpuscular Volume 89.6 fL (83.0-100.0); Mean Platelet Volume 9.2 fL (9.4-12.4); Platelet Count 146 K/mcL (140-400); Red Blood Count 3.38 M/mcL (4.19-5.50); Red Cell Distribution Width 13.7 % (11.5-14.5); White Blood Count 17.3 K/mcL (4.3-11.1)
[2021-12-04 05:18] LABS: Hemoglobin 10.4 g/dL (12.9-16.9)
[2021-12-04 05:46] LABS: BUN/Creatinine Ratio 27 (6-26); Blood Urea Nitrogen 18 mg/dL (8-23); Carbon Dioxide 23 mEq/L (23-29); Chloride 94 mEq/L (98-107); Glucose 86 mg/dL (70-105); Osmolality,Calculated 261 (280-300); Potassium 3.8 mEq/L (3.5-5.1); Sodium 125 mEq/L (136-145); eGFR For African Americans > 60 (> 60); eGFR For Non-African Americans > 60 (> 60)
[2021-12-04] MEDS: Budesonide/Formoterol 160/4.5 1 PUFF INH IH SCH ×2 (07:52→19:45)
[2021-12-04] MEDS: Tiotropium 10 INH DOSE IH SCH (07:52)
[2021-12-04] MEDS: GuaiFENesin Liq 200 MG/10 ML UDC PO SCH (09:36)
[2021-12-04] MEDS: predniSONE 20 MG TABLET PO SCH (09:37)
[2021-12-04] MEDS: Sennosides/Docusate Sodium TABLET PO SCH (09:37)
[2021-12-04] MEDS: Lactobacillus 1 EACH CAP.SPRINK PO SCH ×2 (09:37→23:12)
[2021-12-04] MEDS: Cyanocobalamin (B-12) 1,000 MCG TABLET PO SCH (09:37)
[2021-12-04] MEDS: Metoprolol XL (24 HR) Succ 25 MG TAB.ER.24H PO SCH (09:37)
[2021-12-04] MEDS: Aspirin Enteric Coated 81 MG Tablet PO SCH (09:37)
[2021-12-04] MEDS: *HR* Enoxaparin 40 MG/0.4 ML SYRINGE SQ SCH (09:38)
[2021-12-04 11:12] LABS: Mycoplasma pneumoniae IgG 0.06 U/L (<=0.09)
[2021-12-04] MEDS ORDERED: Tolvaptan 15 MG TABLET PO ONE (17:03)
[2021-12-04] MEDS ORDERED: Furosemide 40 MG/4 ML VIAL IVP ONE (17:03)
[2021-12-04] MEDS ORDERED: 0.9 % Sodium Chloride 500 ML ONE (18:20)
[2021-12-04] MEDS ORDERED: 0.9 % Sodium Chloride 500 ML IVC ONE (18:21)
[2021-12-04] MEDS ORDERED: *HR* LORazepam 2 MG/ML VIAL IVP ONE (22:27)
[2021-12-04] MEDS: Perphenazine 2 MG TABLET PO SCH (23:12)
[2021-12-05 02:07] LABS: Alanine Aminotransferase 38 Units/L (7-52); Albumin 2.8 g/dL (3.5-5.7); Albumin/Globulin Ratio 1.2 (1.1-2.2); Alkaline Phosphatase 165 Units/L (34-104); Aspartate Amino Transferase 74 Units/L (13-39); BUN/Creatinine Ratio 36 (6-26); Bilirubin,Total 1.8 mg/dL (0.3-1.0); Blood Urea Nitrogen 29 mg/dL (8-23); Calcium 7.6 mg/dL (8.6-10.3); Carbon Dioxide 22 mEq/L (23-29); Chloride 98 mEq/L (98-107); Globulin 2.4 g/dL (2.4-3.5); Glucose 85 mg/dL (70-105); Osmolality,Calculated 273 (280-300); Potassium 4.2 mEq/L (3.5-5.1); Sodium 129 mEq/L (136-145); Total Protein 5.2 g/dL (6.4-8.9); eGFR For African Americans > 60 (> 60); eGFR For Non-African Americans > 60 (> 60)
[2021-12-05] MEDS ORDERED: Saliva Stimulant 44.3ml BOTTLE PO PRN (03:12)
[2021-12-05 03:21] LABS: Basophils # 0.1 K/mcL (0.0-0.2); Basophils % 0.4 %; Eosinophils # 0.2 K/mcL (0.0-0.6); Eosinophils % 1.1 %; Hematocrit 26.4 % (37.5-50.1); Hemoglobin 9.1 g/dL (12.9-16.9); Immature Granulocytes % 4.1 % (0-4); Immature Platelets 10.3 % (1.1-6.1); Lymphocytes # 1.1 K/mcL (0.6-4.6); Lymphocytes % 5.5 %; Mean Corpuscular HGB Conc 34.5 g/dL (31.6-35.5); Mean Corpuscular Hemoglobin 30.2 pg (28.0-33.3); Mean Corpuscular Volume 87.7 fL (83.0-100.0); Mean Platelet Volume 11.3 fL (9.4-12.4); Monocytes # 0.5 K/mcL (0.0-1.3); Monocytes % 2.7 %; Neutrophils # 17.2 K/mcL (1.6-8.9); Platelet Count 35 K/mcL (140-400); Red Blood Count 3.01 M/mcL (4.19-5.50); Red Cell Distribution Width 13.7 % (11.5-14.5); Segmented Neutrophils % 86.2 %
[2021-12-05] MEDS: *HR* Enoxaparin 40 MG/0.4 ML SYRINGE SQ SCH (06:45)
[2021-12-05] MEDS: Budesonide/Formoterol 160/4.5 1 PUFF INH IH SCH ×2 (07:34→20:13)
[2021-12-05] MEDS: Tiotropium 10 INH DOSE IH SCH (07:34)
[2021-12-05] MEDS ORDERED: Furosemide 20 MG TABLET PO SCH (09:30)
[2021-12-05] MEDS: Ipratropium/Albuterol Neb 3 ML IH PRN (10:18)
[2021-12-05] MEDS: Cefepime HCl 2,000 MG in 0.9 % Sodium Chloride 10 ML IVP SCH ×3 (10:25→23:40)
[2021-12-05] MEDS: MetroNIDAZOLE 500 MG/100 ML 500 MG/100 ML BAG IVPB SCH ×3 (10:36→23:39)
[2021-12-05] MEDS: Morphine Sulfate 2 MG/ML SYRINGE IVP PRN ×2 (10:38→21:57)
[2021-12-05] MEDS: Aspirin Enteric Coated 81 MG Tablet PO SCH (10:51)
[2021-12-05] MEDS: predniSONE 20 MG TABLET PO SCH (10:51)
[2021-12-05] MEDS: Lactobacillus 1 EACH CAP.SPRINK PO SCH ×2 (10:51→20:03)
[2021-12-05] MEDS: GuaiFENesin Liq 200 MG/10 ML UDC PO SCH (10:52)
[2021-12-05] MEDS: Sennosides/Docusate Sodium TABLET PO SCH (10:52)
[2021-12-05] MEDS: Cyanocobalamin (B-12) 1,000 MCG TABLET PO SCH (10:52)
[2021-12-05] MEDS: Metoprolol XL (24 HR) Succ 25 MG TAB.ER.24H PO SCH (10:52)
[2021-12-05 11:23] LABS: Mean Corpuscular HGB Conc 34.5 g/dL (31.6-35.5); Red Cell Distribution Width 13.9 % (11.5-14.5)
[2021-12-05 11:25] LABS: Basophils # 0.1 K/mcL (0.0-0.2); Basophils % 0.5 %; Eosinophils # 0.1 K/mcL (0.0-0.6); Eosinophils % 0.6 %; Hematocrit 26.4 % (37.5-50.1); Hemoglobin 9.1 g/dL (12.9-16.9); Immature Granulocytes % 4.5 % (0-4); Immature Platelets 14.8 % (1.1-6.1); Lymphocytes # 1.1 K/mcL (0.6-4.6); Lymphocytes % 5.3 %; Mean Corpuscular Hemoglobin 30.1 pg (28.0-33.3); Mean Corpuscular Volume 87.4 fL (83.0-100.0); Monocytes # 0.7 K/mcL (0.0-1.3); Monocytes % 3.1 %; Red Blood Count 3.02 M/mcL (4.19-5.50)
[2021-12-05 11:37] LABS: Neutrophils # 18.1 K/mcL (1.6-8.9)
[2021-12-05 11:40] LABS: Platelet Count 21 K/mcL (140-400)
[2021-12-05 12:51] LABS: % Iron Saturation 32 % (20-55); Folate 7.7 ng/mL (3.0-16.0); Iron 57 mcg/dL (65-175); Transferrin 128 mg/dL (203-362)
[2021-12-05] MEDS ORDERED: Iron Sucrose Complex 400 MG in 0.9 % Sodium Chloride 250 ML IVPB ONE (13:24)
[2021-12-05 13:35] LABS: Ferritin 915 ng/mL (20-250)
[2021-12-05 14:44] LABS: INR 1.8; Prothrombin Time 19.6 Seconds (9.4-12.1)
[2021-12-05 18:46] LABS: Basophils % 0.5 %; Eosinophils % 0.7 %; Hematocrit 25.9 % (37.5-50.1); Hemoglobin 8.9 g/dL (12.9-16.9); Lymphocytes % 4.9 %; Mean Corpuscular HGB Conc 34.4 g/dL (31.6-35.5); Mean Corpuscular Hemoglobin 30.2 pg (28.0-33.3); Mean Corpuscular Volume 87.8 fL (83.0-100.0); Red Blood Count 2.95 M/mcL (4.19-5.50)
[2021-12-05 18:48] LABS: Basophils # 0.1 K/mcL (0.0-0.2); Eosinophils # 0.2 K/mcL (0.0-0.6); Immature Granulocytes % 4.8 % (0-4); Immature Platelets 22.3 % (1.1-6.1); Lymphocytes # 1.1 K/mcL (0.6-4.6); Monocytes # 0.6 K/mcL (0.0-1.3); Monocytes % 2.7 %; Neutrophils # 19.2 K/mcL (1.6-8.9); Segmented Neutrophils % 86.4 %; White Blood Count 22.2 K/mcL (4.3-11.1)
[2021-12-05 19:08] LABS: Platelet Count 12 K/mcL (140-400)
[2021-12-05] MEDS ORDERED: 0.9 % Sodium Chloride 250 ML ONE (19:43)
[2021-12-05] MEDS: Perphenazine 2 MG TABLET PO SCH (20:03)
[2021-12-06 03:17] LABS: Basophils % 0.1 %; Eosinophils % 0.2 %; Hemoglobin 8.8 g/dL (12.9-16.9); Monocytes % 3.1 %; Red Cell Distribution Width 14.9 % (11.5-14.5)
[2021-12-06 03:19] LABS: Eosinophils # 0.1 K/mcL (0.0-0.6); Hematocrit 26.6 % (37.5-50.1); Immature Granulocytes % 5.2 % (0-4); Immature Platelets 10.3 % (1.1-6.1); Mean Corpuscular HGB Conc 33.1 g/dL (31.6-35.5); Mean Corpuscular Hemoglobin 30.2 pg (28.0-33.3); Mean Corpuscular Volume 91.4 fL (83.0-100.0); Monocytes # 1.1 K/mcL (0.0-1.3); Neutrophils # 30.8 K/mcL (1.6-8.9); Nucleated Red Blood Cells 0.1 /100 WBC (0); Red Blood Count 2.91 M/mcL (4.19-5.50); Segmented Neutrophils % 88.4 %
[2021-12-06 03:32] LABS: Platelet Count 32 K/mcL (140-400)
[2021-12-06 03:36] LABS: White Blood Count 34.8 K/mcL (4.3-11.1)
[2021-12-06 04:44] LABS: Platelet Estimate Marked Decrease (Normal)
[2021-12-06 05:45] LABS: ABG Base Excess -2 mEq/L (-2 to 3); ABG HCO3 22 mEq/L (21-27); ABG Oxygen Saturation 95 % (95-98); ABG PCO2 33 mmHg (35-45); ABG PH 7.44 pH Units (7.32-7.45); ABG PO2 70 mmHg (85-104); ABG TCO2 23 mEq/L (20-26)
[2021-12-06] MEDS: Vancomycin 1,250 MG/262.5 ML IV.SOLN IVPB SCH ×2 (06:26→18:28)
[2021-12-06] MEDS: Budesonide/Formoterol 160/4.5 1 PUFF INH IH SCH ×2 (08:01→20:04)
[2021-12-06] MEDS: Tiotropium 10 INH DOSE IH SCH (08:01)
[2021-12-06] MEDS: Morphine Sulfate 2 MG/ML SYRINGE IVP PRN ×3 (08:31→22:56)
[2021-12-06] MEDS: Cefepime HCl 2,000 MG in 0.9 % Sodium Chloride 10 ML IVP SCH ×3 (08:41→22:57)
[2021-12-06] MEDS: MetroNIDAZOLE 500 MG/100 ML 500 MG/100 ML BAG IVPB SCH ×3 (08:42→22:58)
[2021-12-06] MEDS: Metoprolol XL (24 HR) Succ 25 MG TAB.ER.24H PO SCH (08:43)
[2021-12-06] MEDS: Sennosides/Docusate Sodium TABLET PO SCH (08:43)
[2021-12-06] MEDS: GuaiFENesin Liq 200 MG/10 ML UDC PO SCH (08:43)
[2021-12-06] MEDS: Lactobacillus 1 EACH CAP.SPRINK PO SCH ×2 (08:43→19:42)
[2021-12-06] MEDS: Aspirin Enteric Coated 81 MG Tablet PO SCH (08:43)
[2021-12-06] MEDS: predniSONE 20 MG TABLET PO SCH (08:43)
[2021-12-06] MEDS: Cyanocobalamin (B-12) 1,000 MCG TABLET PO SCH (08:44)
[2021-12-06 09:41] LABS: BUN/Creatinine Ratio 45 (6-26); Blood Urea Nitrogen 51 mg/dL (8-23); Calcium 8.2 mg/dL (8.6-10.3); Carbon Dioxide 25 mEq/L (23-29); Chloride 102 mEq/L (98-107); Glucose 117 mg/dL (70-105); Osmolality,Calculated 295 (280-300); Potassium 4.1 mEq/L (3.5-5.1); Sodium 135 mEq/L (136-145); eGFR For African Americans > 60 (> 60); eGFR For Non-African Americans > 60 (> 60)
[2021-12-06] MEDS ORDERED: *HR* LORazepam 2 MG/ML VIAL IVP PRN (10:46)
[2021-12-06] MEDS: Perphenazine 2 MG TABLET PO SCH (19:42)
[2021-12-06] MEDS ORDERED: Saline Nasal Spray 44 ML BOTTLE NS PRN (23:06)
[2021-12-07 03:03] LABS: Hematocrit 34.1 % (37.5-50.1); Hemoglobin 10.4 g/dL (12.9-16.9); Immature Platelets 18.6 % (1.1-6.1); Mean Corpuscular HGB Conc 30.5 g/dL (31.6-35.5); Mean Corpuscular Hemoglobin 30.1 pg (28.0-33.3); Mean Corpuscular Volume 98.6 fL (83.0-100.0); Red Blood Count 3.46 M/mcL (4.19-5.50); Red Cell Distribution Width 16.4 % (11.5-14.5)
[2021-12-07 03:06] LABS: Platelet Count 14 K/mcL (140-400)
[2021-12-07] MEDS ORDERED: 0.9 % Sodium Chloride 250 ML IVC SCH (03:15)
[2021-12-07] MEDS ORDERED: *HR* Dextrose 50 % in Water (Syg) 50 ML SYRINGE ONE (06:46)
[2021-12-07] MEDS ORDERED: Calcium Gluconate 1gm/50mL 1 GM/50 ML BAG IVPB ONE (06:49)
[2021-12-07] MEDS ORDERED: *HR* Dextrose 50 % in Water (Syg) 50 ML SYRINGE IVP ONE (06:49)
[2021-12-07] MEDS ORDERED: Albuterol 2.5 MG/3 ML NEBULIZER IH ONE (06:50)
[2021-12-07] MEDS ORDERED: *HR* Dextrose 50 % in Water (Syg) 50 ML SYRINGE IVP PRN (06:51)
[2021-12-07] MEDS ORDERED: D5% in Water 1,000 ML IVC PRN (06:51)
[2021-12-07] MEDS ORDERED: Dextrose 4 GM Chewable Tablets PO PRN ×2 (06:51)
[2021-12-07] MEDS ORDERED: 0.9 % Sodium Chloride 250 ML ONE (06:52)
[2021-12-07] MEDS ORDERED: Sodium Bicarbonate 150 MEQ in D5% in Water 1,000 ML IVC SCH (07:00)
[2021-12-07] MEDS: Budesonide/Formoterol 160/4.5 1 PUFF INH IH SCH ×2 (07:23→19:50)
[2021-12-07] MEDS: Tiotropium 10 INH DOSE IH SCH (07:23)
[2021-12-07] MEDS: predniSONE 20 MG TABLET PO SCH (07:34)
[2021-12-07] MEDS: Sennosides/Docusate Sodium TABLET PO SCH (07:34)
[2021-12-07] MEDS: Aspirin Enteric Coated 81 MG Tablet PO SCH (07:34)
[2021-12-07] MEDS: Lactobacillus 1 EACH CAP.SPRINK PO SCH ×2 (07:34→19:29)
[2021-12-07] MEDS: GuaiFENesin Liq 200 MG/10 ML UDC PO SCH (07:34)
[2021-12-07] MEDS: Metoprolol XL (24 HR) Succ 25 MG TAB.ER.24H PO SCH (07:35)
[2021-12-07] MEDS: Cyanocobalamin (B-12) 1,000 MCG TABLET PO SCH (07:35)
[2021-12-07] MEDS: Cefepime HCl 2,000 MG in 0.9 % Sodium Chloride 10 ML IVP SCH ×3 (10:27→23:14)
[2021-12-07] MEDS: Vancomycin 1,250 MG/262.5 ML IV.SOLN IVPB SCH (10:28)
[2021-12-07 10:50] LABS: BUN/Creatinine Ratio 53 (6-26); Blood Urea Nitrogen 61 mg/dL (8-23); Calcium 8.1 mg/dL (8.6-10.3); Carbon Dioxide 24 mEq/L (23-29); Chloride 109 mEq/L (98-107); Glucose 136 mg/dL (70-105); Osmolality,Calculated 313 (280-300); Potassium 4.3 mEq/L (3.5-5.1); Sodium 142 mEq/L (136-145); eGFR For African Americans > 60 (> 60); eGFR For Non-African Americans > 60 (> 60)
[2021-12-07] MEDS: MetroNIDAZOLE 500 MG/100 ML 500 MG/100 ML BAG IVPB SCH ×3 (12:00→23:14)
[2021-12-07] MEDS ORDERED: Scopolamine Patch 1.5 MG PATCH.TD72 TD SCH (14:45)
[2021-12-07] MEDS: Morphine Sulfate 2 MG/ML SYRINGE IVP PRN ×2 (16:48→23:15)
[2021-12-07 18:30] VITALS: PULSE 79
[2021-12-07] MEDS: Perphenazine 2 MG TABLET PO SCH (19:30)
[2021-12-08] MEDS: Morphine Sulfate 2 MG/ML SYRINGE IVP PRN ×2 (02:48→05:16)
[2021-12-08 03:40] VITALS: BP 88/63; TEMP 98.5; O2SAT 95
[2021-12-08] MEDS: Tiotropium 10 INH DOSE IH SCH (07:20)
[2021-12-08] MEDS: Budesonide/Formoterol 160/4.5 1 PUFF INH IH SCH (07:21)
== END 2021-12-08 07:25 | disposition expired | DRG 871 ==
LOC: 2NENU 20:11 → EMEROOARM 20:11 → SUATTDRO 23:27 → 2NENU 23:45 → SUATTDRO 11-30 10:30
PROVIDERS: ADMIT Internal Medicine; ATTEND Family Medicine